=== PATIENT | female | born 1995 | race Asian ===

== ENCOUNTER 2018-03-25 10:02 | Outpatient (CLI) | payer OTHER ==
[2018-03-25 11:09] LABS: BILIRUBIN,URINE NEGATIVE (NEGATIVE); BLOOD, URINE 2+ (NEGATIVE); CLARITY/URINE CLEAR (CLEAR); COLOR,URINE YELLOW (YELLOW); GLUCOSE,URINE NEGATIVE (NEGATIVE); KETONES,URINE NEGATIVE (NEGATIVE); LEUKOCYTE ESTERASE ,URINE NEGATIVE (NEGATIVE); NITRITE, URINE NEGATIVE (NEGATIVE); PROTEIN URINE NEGATIVE (NEGATIVE); UROBILINOGEN,URINE 0.2 (0.2-1.0)
[2018-03-25 11:12] LABS: BASOPHILS # (AUTO) 0.1 K/uL (0.0-0.2); BASOPHILS % (AUTO) 0.8 % (0.0-2.0); EOSINOPHILS # (AUTO) 0.3 K/uL (0.0-0.4); EOSINOPHILS % (AUTO) 3.5 % (0.0-4.0); HEMATOCRIT 40.3 % (36-48); HEMOGLOBIN 13.6 g/dL (12.0-16.0); LYMPHOCYTES # (AUTO) 2.1 K/uL (1.0-5.5); LYMPHOCYTES % (AUTO) 27.1 % (20.5-51.5); MEAN CORPUSCULAR HEMOGLOBIN 28 pg (27-31); MEAN CORPUSCULAR HGB CONC 34 % (32-36); MEAN CORPUSCULAR VOLUME 84 fL (79.0-98.0); MONOCYTES # (AUTO) 0.3 K/uL (0.0-1.0); MONOCYTES % (AUTO) 4.4 % (1.7-9.3); NEUTROPHILS # (AUTO) 4.9 K/uL (1.8-7.7); NEUTROPHILS % (AUTO) 64.2 % (40.0-70.0); PLATELET COUNT (AUTO) 482 K/uL (130-430); RED CELL DISTRIBUTION WIDTH 11.4 % (9.0-15.0); WHITE BLOOD COUNT (AUTO) 7.7 K/uL (4.8-10.8)
[2018-03-25 11:21] LABS: CALCIUM 9.4 mg/dL (8.4-11.0); CREATININE 0.6 mg/dL (0.55-1.30); POTASSIUM 4.1 mmol/L (3.5-5.1)
[2018-03-25 11:31] LABS: BACTERIA,URINE RARE /HPF (None Seen); CALCIUM OXALATE CRYSTALS,UR 0-10 /HPF (None Seen); MUCUS,URINE 1+ /LPF (None Seen); WBC,URINE 0-3 /HPF (0-3)
[2018-03-25 11:36] LABS: ALBUMIN 3.9 g/dL (3.4-4.8); THYROID STIMULATING HORMONE 1.56 uIu/mL (0.34-4.82); TOTAL BILIRUBIN 0.2 mg/dL (0.0-1.0)
[2018-03-26 07:06] LABS: HEMOGLOBIN A1C 5.3 % (4.8-5.6)
== END 2018-03-25 16:40 | disposition home or self-care (01) ==
LOC: SLB 10:02
PROVIDERS: ATTEND Internal Medicine
DX: Z00.01 Encounter for general adult medical examination with abnormal findings (principal); R79.89 Other specified abnormal findings of blood chemistry
CPT/HCPCS: 36415; 80053; 80061; 81000-TC; 82306; 83036; 84443-TC; 84702-TC; 85025; 87086

== ENCOUNTER 2019-04-07 16:52 | Outpatient (CLI) | payer OTHER ==
[2019-04-09 12:05] LABS: CHLAMYDIA TRACHOMATIS NAA Negative (Negative); NEISSERIA GONORRHOEAE NAA Negative (Negative)
== END 2019-04-07 21:22 | disposition home or self-care (01) ==
LOC: SLB 16:52
PROVIDERS: ATTEND Emergency Medicine
DX: A74.9 Chlamydial infection, unspecified (principal)
CPT/HCPCS: 36415; 87491; 87591

== ENCOUNTER 2019-04-29 04:12 | Emergency (ER) | payer OTHER ==
[~2019-04-29] VITALS: Ht 162.6 cm; Wt 86.2 kg
[2019-04-29 04:15] VITALS: BP_SYST 138
--- NOTE | 2019-04-29 04:15 | NUR ---
Patient to ER bed 07 to gown for evaluation. Side rails up.
--- NOTE | 2019-04-29 04:20 | NUR ---
Patient AOx4, ambulatory, presents to ER with complaint of constant lower abdominal pain since yesterday morning. Patient also reports episodes of nausea but no vomiting. Patient reports pressure with urination. Patient states she medicates with Zoloft and occasionally with Claritin. Father at bedside.
--- NOTE | 2019-04-29 04:22 | NUR ---
ER MD Chase at bedside for medical evaluation.
[2019-04-29] MEDS ORDERED: NACL 0.9% 1,000 ML IV ONE (04:23)
[2019-04-29] MEDS ORDERED: ONDANSETRON HCL 4 MG/2 ML VIAL IVP ONE (04:30)
[2019-04-29] MEDS ORDERED: KETOROLAC TROMETHAMINE 30 MG VIAL IVP ONE (04:30)
[2019-04-29] MEDS ORDERED: SERT100T PO (04:31)
[2019-04-29] MEDS ORDERED: LORA10TA7 PO (04:31)
[2019-04-29] MEDS ORDERED: birth control pill PO (04:32)
[2019-04-29 04:44] LABS: BILIRUBIN,URINE NEGATIVE (NEGATIVE); BLOOD, URINE 1+ (NEGATIVE); CLARITY/URINE CLEAR (CLEAR); COLOR,URINE YELLOW (YELLOW); GLUCOSE,URINE NEGATIVE (NEGATIVE); KETONES,URINE NEGATIVE (NEGATIVE); LEUKOCYTE ESTERASE ,URINE 1+ (NEGATIVE); NITRITE, URINE NEGATIVE (NEGATIVE); PROTEIN URINE NEGATIVE (NEGATIVE); UROBILINOGEN,URINE 0.2 (0.2-1.0)
[2019-04-29 04:50] LABS: BACTERIA,URINE MODERATE /HPF (None Seen)
--- NOTE | 2019-04-29 05:06 | NUR ---
# 20 gauge angiocath placed to RAC. Use of asceptic technique. Opsite placed over site. Blood return noted. Blood for lab drawn from site. Flushed with 10 cc of normal saline. No evidence of infiltration noted. Patient tolerated well.
[2019-04-29] MEDS ORDERED: cefTRIAXone 1 GM in D5W 50 ML IV ONE (05:15)
[2019-04-29 05:19] LABS: BASOPHILS # (AUTO) 0.1 K/uL (0.0-0.2); BASOPHILS % (AUTO) 0.6 % (0.0-2.0); EOSINOPHILS # (AUTO) 0.3 K/uL (0.0-0.4); EOSINOPHILS % (AUTO) 2.4 % (0.0-4.0); HEMATOCRIT 37.9 % (36-48); HEMOGLOBIN 12.7 g/dL (12.0-16.0); LYMPHOCYTES # (AUTO) 3.1 K/uL (1.0-5.5); LYMPHOCYTES % (AUTO) 25.3 % (20.5-51.5); MEAN CORPUSCULAR HEMOGLOBIN 28 pg (27-31); MEAN CORPUSCULAR HGB CONC 34 % (32-36); MEAN CORPUSCULAR VOLUME 83 fL (79.0-98.0); MONOCYTES # (AUTO) 0.8 K/uL (0.0-1.0); MONOCYTES % (AUTO) 6.7 % (1.7-9.3); PLATELET COUNT (AUTO) 442 K/uL (130-430); RED BLOOD CELL COUNT(AUTO) 4.57 MIL/uL (4.2-6.2); RED CELL DISTRIBUTION WIDTH 12.6 % (9.0-15.0); WHITE BLOOD COUNT (AUTO) 12.3 K/uL (4.8-10.8)
[2019-04-29] MEDS ORDERED: cefTRIAXone 1 GM VIAL ONE (05:22)
[2019-04-29 05:33] LABS: CALCIUM 8.9 mg/dL (8.4-11.0); CREATININE 0.72 mg/dL (0.55-1.30); POTASSIUM 3.5 mmol/L (3.5-5.1)
[2019-04-29 05:38] LABS: ALBUMIN 3.4 g/dL (3.4-4.8); TOTAL BILIRUBIN 0.2 mg/dL (0.0-1.0)
--- NOTE | 2019-04-29 05:40 | NUR ---
No adverse reactions noted after medication administration. Will continue to monitor.
[2019-04-29 06:02] VITALS: BP_SYST 132
--- NOTE | 2019-04-29 06:02 | NUR ---
Patient given written and verbal discharge instructions and verbalizes understanding. ER MD discussed with patient the results and treatment provided. Patient in stable condition. ID arm band removed. IV catheter removed intact and dressing applied, no active bleeding. Rx of Bactrim DS and Motrin given. Patient educated on pain management and to follow up with PMD. Pain Scale 0/10. Opportunity for questions provided and answered. Medication side effect fact sheet provided.
== END 2019-04-29 06:02 | disposition home or self-care (01) ==
LOC: SED 04:12
DX: N83.201 Unspecified ovarian cyst, right side (principal); N39.0 Urinary tract infection, site not specified; Z88.1 Allergy status to other antibiotic agents; Z79.899 Other long term (current) drug therapy
CPT/HCPCS: 36415; 76830; 76857; 80053; 81000; 81025; 85025; 87086; 87186; 96365; 96375; 99284; J0696; J1885; J2405; J7030

== ENCOUNTER 2019-09-13 08:30 | Outpatient (CLI) | payer OTHER ==
[~2019-09-13 08:30] MED LIST: LORA10TA7 PO; SERT100T PO; birth control pill PO
== END 2019-09-13 20:02 | disposition home or self-care (01) ==
LOC: SUS 08:30
PROVIDERS: ATTEND Internal Medicine
DX: K80.20 Calculus of gallbladder without cholecystitis without obstruction (principal)
CPT/HCPCS: 76700-TC

== ENCOUNTER 2019-10-05 07:39 | Inpatient (IN) | payer OTHER ==
[~2019-10-05] VITALS: Ht 162.6 cm; Wt 86.2 kg
[2019-10-05 07:46] VITALS: BP_SYST 111
[2019-10-05] MEDS ORDERED: KETOROLAC TROMETHAMINE 60 MG/2 ML VIAL IM ONE (08:00)
[2019-10-05 08:41] LABS: BASOPHILS # (AUTO) 0.1 K/uL (0.0-0.2); BASOPHILS % (AUTO) 0.7 % (0.0-2.0); EOSINOPHILS # (AUTO) 0.2 K/uL (0.0-0.4); HEMATOCRIT 39.3 % (36-48); HEMOGLOBIN 13.1 g/dL (12.0-16.0); LYMPHOCYTES # (AUTO) 2.1 K/uL (1.0-5.5); LYMPHOCYTES % (AUTO) 17.3 % (20.5-51.5); MEAN CORPUSCULAR HEMOGLOBIN 28 pg (27-31); MEAN CORPUSCULAR HGB CONC 33 % (32-36); MEAN CORPUSCULAR VOLUME 84 fL (79.0-98.0); MONOCYTES # (AUTO) 0.8 K/uL (0.0-1.0); MONOCYTES % (AUTO) 6.4 % (1.7-9.3); NEUTROPHILS # (AUTO) 8.8 K/uL (1.8-7.7); NEUTROPHILS % (AUTO) 73.6 % (40.0-70.0); PLATELET COUNT (AUTO) 496 K/uL (130-430); RED BLOOD CELL COUNT(AUTO) 4.66 MIL/uL (4.2-6.2); RED CELL DISTRIBUTION WIDTH 12.8 % (9.0-15.0)
[2019-10-05 08:51] LABS: CALCIUM 9.1 mg/dL (8.4-11.0); CREATININE 0.83 mg/dL (0.55-1.30); POTASSIUM 3.5 mmol/L (3.5-5.1)
[2019-10-05 09:06] LABS: ALBUMIN 3.8 g/dL (3.4-4.8); TOTAL BILIRUBIN 0.4 mg/dL (0.0-1.0)
[2019-10-05] MEDS ORDERED: CETI1TAB2 PO (09:33)
[2019-10-05 10:05] VITALS: BP_SYST 118
[2019-10-05 10:22] VITALS: BP_SYST 118
[2019-10-05] MEDS ORDERED: ONDANSETRON HCL 4 MG/2 ML VIAL IVP PRN (10:45)
[2019-10-05] MEDS ORDERED: ACETAMINOPHEN 325 MG TABLET PO PRN (10:45)
[2019-10-05] MEDS ORDERED: HYDROmorphone 1 MG INJ. 1 MG/ML AMPUL IVP PRN (10:45)
[2019-10-05] MEDS: D5LR 1,000 ML IV SCH ×2 (11:13→23:10)
[2019-10-05] MEDS ORDERED: FAMOTIDINE PF 20 MG/2 ML VIAL IVP ONE (11:15)
[2019-10-05 12:00] VITALS: BP_SYST 122
[2019-10-05] MEDS: AMPICILLIN SODIUM/SULBACTAM NA 3 GM in NS 100 ML IV SCH ×3 (12:20→23:09)
[2019-10-05] MEDS ORDERED: BRIMONIDINE TARTRATE 0.2% 5 mL EYE DROPS OP ONE (18:45)
[2019-10-05] MEDS ORDERED: NS 1000 ML IV.SOLN IV ONE (18:45)
[2019-10-05] MEDS ORDERED: PROPOFOL 200MG/ 20ML VIAL (DIPRIVAN) IV ONE (18:45)
[2019-10-05] MEDS ORDERED: SEVOFLURANE 15 MIN GAS INH ONE (18:45)
[2019-10-05] MEDS ORDERED: ROCURONIUM BROMIDE 10 MG/ML (ZEMURON) IV ONE (18:45)
[2019-10-05] MEDS ORDERED: fentaNYL CITRATE 250 MCG/5 ML AMP IV ONE (18:45)
[2019-10-05] MEDS ORDERED: BUPIVACAINE /EPINEPHRINE/PF 0.5% 30 ML VIAL INJ ONE (18:45)
[2019-10-05 20:00] VITALS: BP_SYST 121
[2019-10-05] MEDS ORDERED: FLU VACC QS2019-20 36MOS UP/PF 60 MCG/0.5 ML SYRINGE I.M. PRN (20:30)
[2019-10-05] MEDS: FAMOTIDINE PF 20 MG/2 ML VIAL IVP SCH (22:03)
[2019-10-06] VITALS: BP_SYST 120
[2019-10-06] MEDS: AMPICILLIN SODIUM/SULBACTAM NA 3 GM in NS 100 ML IV SCH ×4 (05:14→23:54)
[2019-10-06 06:32] LABS: BASOPHILS # (AUTO) 0.1 K/uL (0.0-0.2); BASOPHILS % (AUTO) 0.7 % (0.0-2.0); EOSINOPHILS # (AUTO) 0.4 K/uL (0.0-0.4); EOSINOPHILS % (AUTO) 4.7 % (0.0-4.0); HEMATOCRIT 35.5 % (36-48); HEMOGLOBIN 11.9 g/dL (12.0-16.0); LYMPHOCYTES # (AUTO) 2.5 K/uL (1.0-5.5); MEAN CORPUSCULAR HEMOGLOBIN 29 pg (27-31); MEAN CORPUSCULAR HGB CONC 34 % (32-36); MEAN CORPUSCULAR VOLUME 85 fL (79.0-98.0); MONOCYTES # (AUTO) 0.6 K/uL (0.0-1.0); NEUTROPHILS % (AUTO) 53.6 % (40.0-70.0); PLATELET COUNT (AUTO) 403 K/uL (130-430); RED BLOOD CELL COUNT(AUTO) 4.17 MIL/uL (4.2-6.2); RED CELL DISTRIBUTION WIDTH 12.7 % (9.0-15.0); WHITE BLOOD COUNT (AUTO) 7.5 K/uL (4.8-10.8)
[2019-10-06 06:52] LABS: ALBUMIN 3.1 g/dL (3.4-4.8); CALCIUM 8.9 mg/dL (8.4-11.0); CREATININE 0.81 mg/dL (0.55-1.30); POTASSIUM 3.8 mmol/L (3.5-5.1); TOTAL BILIRUBIN 0.3 mg/dL (0.0-1.0)
[2019-10-06 08:00] VITALS: BP_SYST 131
[2019-10-06] MEDS: FAMOTIDINE PF 20 MG/2 ML VIAL IVP SCH ×2 (08:54→22:00)
[2019-10-06] MEDS: KETOROLAC TROMETHAMINE 15 MG VIAL IVP PRN ×2 (08:55→22:00)
[2019-10-06 12:00] VITALS: BP_SYST 116
[2019-10-06] MEDS: D5LR 1,000 ML IV SCH ×2 (13:01→15:45)
[2019-10-06 16:10] LABS: BILIRUBIN,URINE NEGATIVE (NEGATIVE); BLOOD, URINE 3+ (NEGATIVE); CLARITY/URINE CLEAR (CLEAR); COLOR,URINE YELLOW (YELLOW); GLUCOSE,URINE NEGATIVE (NEGATIVE); KETONES,URINE NEGATIVE (NEGATIVE); LEUKOCYTE ESTERASE ,URINE NEGATIVE (NEGATIVE); NITRITE, URINE NEGATIVE (NEGATIVE); PH,URINE 7.5 (5.0-8.0); PROTEIN URINE NEGATIVE (NEGATIVE); UROBILINOGEN,URINE 0.2 (0.2-1.0)
[2019-10-06 16:34] VITALS: BP_SYST 112
[2019-10-06 17:28] LABS: PROTHROMBIN TIME 9.9 SECS (9.5-12.5)
[2019-10-06 18:22] LABS: WBC,URINE 0-3 /HPF (0-3)
[2019-10-06 18:23] LABS: BACTERIA,URINE FEW /HPF (None Seen); MUCUS,URINE None Seen /LPF (None Seen)
[2019-10-06] MEDS ORDERED: IOHEXOL 0 ML IV ONE (19:10)
[2019-10-06] MEDS ORDERED: LR 1,000 ML IV SCH (19:48)
[2019-10-06 20:00] VITALS: BP_SYST 110
[2019-10-06] MEDS ORDERED: HYDROmorphone 1 MG INJ. 1 MG/ML AMPUL IVP PRN ×2 (20:00)
[2019-10-06] MEDS ORDERED: METOCLOPRAMIDE HCL 10 MG/2 ML VIAL IVP PRN (20:00)
[2019-10-06] MEDS ORDERED: HYDROmorphone 2 MG/ML VIAL IVP PRN (20:00)
[2019-10-06] MEDS ORDERED: traMADol HCL HCL 50 MG TABLET (ULTRAM) PO PRN (20:15)
[2019-10-06 21:00] VITALS: BP_SYST 121
[2019-10-07] VITALS: BP_SYST 110
[2019-10-07] MEDS: KETOROLAC TROMETHAMINE 15 MG VIAL IVP PRN ×3 (05:23→16:50)
[2019-10-07] MEDS: AMPICILLIN SODIUM/SULBACTAM NA 3 GM in NS 100 ML IV SCH ×2 (05:35→11:32)
[2019-10-07 07:34] LABS: ALBUMIN 3.2 g/dL (3.4-4.8); CALCIUM 8.3 mg/dL (8.4-11.0); CREATININE 0.67 mg/dL (0.55-1.30); POTASSIUM 3.6 mmol/L (3.5-5.1); TOTAL BILIRUBIN 0.4 mg/dL (0.0-1.0)
[2019-10-07 08:00] VITALS: BP_SYST 119
[2019-10-07] MEDS: FAMOTIDINE PF 20 MG/2 ML VIAL IVP SCH (09:32)
[2019-10-07] MEDS: D5LR 1,000 ML IV SCH ×2 (09:45→16:45)
[2019-10-07 11:22] VITALS: BP_SYST 124
[2019-10-07 13:45] LABS: CHOLESTEROL 193 mg/dL (<200); HDL CHOLESTEROL 30 mg/dL (>55); LDL CHOLESTEROL 134 mg/dL (<100); TRIGLYCERIDES 159 mg/dL (30-150)
[2019-10-07 16:28] VITALS: BP_SYST 99
[2019-10-07 18:31] VITALS: BP_SYST 99
== END 2019-10-07 19:15 | disposition home or self-care (01) | DRG 419 ==
LOC: SED 07:39 → SMU 09:37
PROVIDERS: ADMIT Internal Medicine; ATTEND Internal Medicine
PROC: 0FT44ZZ Resection of Gallbladder, Percutaneous Endoscopic Approach (ICD-10-PCS; principal; 2019-10-06 18:00)
DX: K80.00 Calculus of gallbladder with acute cholecystitis without obstruction (principal); F32.9 Major depressive disorder, single episode, unspecified; E66.9 Obesity, unspecified; Z68.32 Body mass index [BMI] 32.0-32.9, adult; Z80.3 Family history of malignant neoplasm of breast; Z88.1 Allergy status to other antibiotic agents
CPT/HCPCS: 36415; 80053; 80061; 81000-TC; 82306; 82607; 83690-TC; 84703; 85025; 85610-TC; 85730-TC; 87081; 88304; 96372; 99285; J0295; J1170; J1885; J2704; J2765; J3010; J3490; J7030; J7120; Q9967

== ENCOUNTER 2023-03-06 14:24 | Emergency (ER) | payer OTHER ==
[~2023-03-06] VITALS: Ht 162.6 cm; Wt 72.6 kg
[~2023-03-06 14:24] MED LIST changes: +CETI1TAB2 PO; -LORA10TA7 PO
--- NOTE | 2023-03-06 14:25 | NUR ---
Placed in room 08 . Placed on quality assurance monitor final, blood pressure machine and pulse oximeter. To gown for exam. Side rails up. Report given to LIVAN MELARA.
--- NOTE | 2023-03-06 14:30 | NUR ---
Patient BIB sister from home. Chief Complaint: abdominal pain x2w with intermittent menses spotting. Patient a&ox4 stable and in bed. Sister at bedside.
[2023-03-06 14:35] VITALS: BP_SYST 128
--- NOTE | 2023-03-06 14:40 | NUR ---
Placed in room 08 . Placed on night monitor, blood pressure machine and pulse oximeter. To gown for exam. Side rails up. Report given to LIVAN MELARA.
[2023-03-06] MEDS ORDERED: KETOROLAC TROMETHAMINE 30 MG VIAL IM ONE (15:15)
[2023-03-06 15:22] LABS: BILIRUBIN,URINE NEGATIVE (NEGATIVE); BLOOD, URINE 3+ (NEGATIVE); CLARITY/URINE CLEAR (CLEAR); COLOR,URINE YELLOW (YELLOW); GLUCOSE,URINE NEGATIVE (NEGATIVE); KETONES,URINE 2+ (NEGATIVE); LEUKOCYTE ESTERASE ,URINE TRACE (NEGATIVE); NITRITE, URINE NEGATIVE (NEGATIVE); PROTEIN URINE TRACE (NEGATIVE); UROBILINOGEN,URINE 0.2 (0.2-1.0)
[2023-03-06 15:31] LABS: BACTERIA,URINE FEW /HPF (None Seen); MUCUS,URINE 1+ /LPF (None Seen); RBC,URINE NONE SEEN /HPF (0-3)
--- NOTE | 2023-03-06 15:33 | NUR ---
ER DR. CABRERA AT THE BEDSIDE EXAMINING PT
[2023-03-06 15:44] LABS: BASOPHILS % (AUTO) 0.7 % (0.0-2.0); EOSINOPHILS # (AUTO) 0.1 K/uL (0.0-0.4); EOSINOPHILS % (AUTO) 1.3 % (0.0-4.0); HEMATOCRIT 39.5 % (36-48); HEMOGLOBIN 13.4 g/dL (12.0-16.0); LYMPHOCYTES # (AUTO) 1.8 K/uL (1.0-5.5); LYMPHOCYTES % (AUTO) 23.2 % (20.5-51.5); MEAN CORPUSCULAR HEMOGLOBIN 29 pg (27-31); MEAN CORPUSCULAR HGB CONC 34 % (32-36); MEAN CORPUSCULAR VOLUME 85 fL (79.0-98.0); MONOCYTES # (AUTO) 0.4 K/uL (0.0-1.0); MONOCYTES % (AUTO) 5.3 % (1.7-9.3); NEUTROPHILS # (AUTO) 5.3 K/uL (1.8-7.7); NEUTROPHILS % (AUTO) 69.5 % (40.0-70.0); PLATELET COUNT (AUTO) 408 K/uL (130-430); RED BLOOD CELL COUNT(AUTO) 4.67 MIL/uL (4.2-6.2); RED CELL DISTRIBUTION WIDTH 12.4 % (9.0-15.0); WHITE BLOOD COUNT (AUTO) 7.6 K/uL (4.8-10.8)
[2023-03-06 15:53] LABS: CREATININE 0.82 mg/dL (0.55-1.30)
[2023-03-06 15:57] LABS: ALBUMIN 4.1 g/dL (3.4-4.8); TOTAL BILIRUBIN 0.6 mg/dL (0.0-1.0)
[2023-03-06] MEDS ORDERED: NITR-85 PO (18:08)
[2023-03-06] MEDS ORDERED: IBUP-1969 PO (18:08)
[2023-03-06] MEDS ORDERED: POTA-197 PO (18:08)
[2023-03-06] MEDS ORDERED: PHEN-890 PO (18:10)
[2023-03-06 18:15] VITALS: BP_SYST 128
--- NOTE | 2023-03-06 18:30 | NUR ---
Patient given written and verbal discharge instructions and verbalizes understanding. ER MD discussed with patient the results and treatment provided. Patient in stable condition. ID arm band removed. IV catheter removed intact and dressing applied, no active bleeding. Rx of IBUPROFEN, MACROBID, PYRIDIUM AND K-DUR given. Patient educated on pain management and to follow up with PMD. Pain Scale 0/10. Opportunity for questions provided and answered. Medication side effect fact sheet provided.
== END 2023-03-06 18:15 | disposition home or self-care (01) ==
LOC: SED 14:24
DX: N93.9 Abnormal uterine and vaginal bleeding, unspecified (principal); N39.0 Urinary tract infection, site not specified; Z88.1 Allergy status to other antibiotic agents; Z79.899 Other long term (current) drug therapy
CPT/HCPCS: 36415; 76856-TC; 80053; 81000; 81025; 83690; 85025; 99284